=== PATIENT | female | born 1950 | race Caucasian/White ===

== ENCOUNTER → 2017-04-29 | Outpatient (CLI) | payer MEDICARE, OTHER ==
[~2017-04-29] MED LIST: ASPIRIN81 M1 PO; ATENOLOL50 MG PO; B121000 MCG/1 PO; BENAZEPRIL20 MG PO; CITALOPRAM20 MG PO; DULCOLAX5 MG PO; HYDROCHLOROTHIA25 MG PO; Lovenox40 MG/0.4 SC; MOM30 M1 PO; PERCOCET 325 MG1 TA2 PO; PRILOSEC20 MG; PRILOSEC20 MG PO; SYNTHROID,LEV100 MCG PO; SYNTHROID,LEVO25 MCG PO; TYLENOL325 M1 PO; ZOCOR20 MG PO
== END | disposition home or self-care (01) ==
LOC: RAD 09:25
DX: R09.89 Other specified symptoms and signs involving the circulatory and respiratory systems (principal); I10 Essential (primary) hypertension; M40.294 Other kyphosis, thoracic region; M47.894 Other spondylosis, thoracic region

== ENCOUNTER → 2017-05-30 | Outpatient (CLI) | payer MEDICARE, OTHER | END | disposition home or self-care (01) | LOC: CARD 13:00 | DX: I51.7 Cardiomegaly (principal); I10 Essential (primary) hypertension ==

== ENCOUNTER → 2017-09-30 | Outpatient (CLI) | payer MEDICARE, OTHER | END | disposition home or self-care (01) | LOC: RAD 10:09 | DX: R91.8 Other nonspecific abnormal finding of lung field (principal); I10 Essential (primary) hypertension ==

== ENCOUNTER → 2017-11-07 | Outpatient (CLI) | payer MEDICARE, OTHER ==
[2017-11-07 09:13] LABS: CREATININE 0.77 mg/dL (0.55-1.02)
== END | disposition home or self-care (01) ==
LOC: LAB 08:44 → CT 09:00
PROVIDERS: Radiology Diagnostic Radiology
DX: I25.10 Atherosclerotic heart disease of native coronary artery without angina pectoris (principal); R91.8 Other nonspecific abnormal finding of lung field

== ENCOUNTER → 2019-02-14 | Outpatient (CLI) | payer MEDICARE, OTHER | END | disposition home or self-care (01) | LOC: MAMMO 10:20 → RAD 12:52 | DX: Z12.31 Encounter for screening mammogram for malignant neoplasm of breast (principal); N95.9 Unspecified menopausal and perimenopausal disorder; R29.890 Loss of height ==

== ENCOUNTER → 2019-03-26 | Outpatient (CLI) | payer MEDICARE, OTHER | END | disposition home or self-care (01) | LOC: US 03-05 11:30 | DX: N63.14 Unspecified lump in the right breast, lower inner quadrant (principal); R92.8 Other abnormal and inconclusive findings on diagnostic imaging of breast ==

== ENCOUNTER 2020-04-29 03:26 | Emergency (ER) | payer MEDICARE, OTHER ==
[~2020-04-29] VITALS: Ht 170.1 cm; Wt 104.3 kg
[2020-04-29 03:36] VITALS: BP 144/64
[2020-04-29] MEDS ORDERED: MEDROL DOSEPAK4 MG PO (05:38)
== END 2020-04-29 06:13 | disposition home or self-care (01) ==
LOC: ED 03:26
DX: S00.561A Insect bite (nonvenomous) of lip, initial encounter (principal); S40.861A Insect bite (nonvenomous) of right upper arm, initial encounter; Z91.040 Latex allergy status; Z79.899 Other long term (current) drug therapy; Z79.82 Long term (current) use of aspirin; W57.XXXA Bitten or stung by nonvenomous insect and other nonvenomous arthropods, initial encounter; Y93.89 Activity, other specified; Y92.89 Other specified places as the place of occurrence of the external cause; Y99.8 Other external cause status

== ENCOUNTER 2020-09-20 14:45 | Inpatient (IN) | payer MEDICARE, OTHER ==
[~2020-09-20] VITALS: Ht 172.7 cm; Wt 105.7 kg
[~2020-09-20 14:45] MED LIST changes: +MEDROL DOSEPAK4 MG PO
[2020-09-20 14:48] VITALS: BP 156/84
[2020-09-20 15:35] LABS: BASO % 0.4 % (0.0-1.0); EOS # 0.4 10*3/uL (0.0-0.4); EOS % 4.4 % (1.0-4.0); HEMATOCRIT 42.3 % (37.0-47.0); LYMPH # 2.3 10*3/uL (1.3-4.4); LYMPH % 27.4 % (27.0-41.0); MEAN CELL VOLUME 86.3 fl (81.0-99.0); MEAN CORPUSCULAR HGB 26.3 pg (27.0-31.0); MEAN CORPUSCULAR HGB CONC 30.5 g/dl (33.0-37.0); MEAN PLATELET VOLUME 10.2 fl (9.6-12.3); MONO # 0.7 10*3/uL (0.1-1.0); MONO % 7.6 % (3.0-9.0); NEUT # 5.1 10*3/uL (2.3-7.9); NEUT % 59.7 % (47.0-73.0); PLATELET COUNT AUTOMATED 303 10*3/uL (130-400); RED CELL DISTRI WIDTH 14.7 % (0-14.5); WHITE BLOOD COUNT 8.5 10*3/uL (4.8-10.8)
[2020-09-20 16:29] LABS: ALBUMIN 3.1 gm/dl (3.1-4.5); ALKALINE PHOSPHATASE 165 U/L (45-117); BUN 13 mg/dl (7-24); CHLORIDE 108 mmol/L (98-107); CREATININE 0.64 mg/dL (0.55-1.02); SGOT/AST 36 IU/L (3-35); SGPT/ALT 36 U/L (12-78); SODIUM 140 mmol/L (136-145); TOTAL PROTEIN 8.2 gm/dL (6.4-8.2)
[2020-09-20 16:36] LABS: TROPONIN I < 0.015 ng/ml (<0.045)
[2020-09-20 16:44] LABS: BILIRUBIN Negative (Negative); BLOOD Trace-Intact (Negative); CLARITY Clear (Clear); COLOR Yellow (Yellow); GLUCOSE Negative (Negative); KETONE Negative (Negative); LEUKO ESTERASE 1+ (Negative); NITRITE Negative (Negative); PH 5.5 (4.5-8.0); SPECIFIC GRAVITY 1.025 (1.001-1.030)
[2020-09-20 16:49] LABS: RBC 0-2 rbc/hpf (0-2); WBC 16-20 wbc/hpf (0-5)
[2020-09-20 16:50] LABS: BACTERIA 1+
[2020-09-20] MEDS ORDERED: LEVOTHYROXINE88 MCG PO (19:22)
[2020-09-20] MEDS ORDERED: CARBIDOPA-LEVO1 EAC6 PO (19:24)
[2020-09-20] MEDS ORDERED: CITALOPRAM40 MG PO (19:26)
[2020-09-20] MEDS ORDERED: DONEPEZIL HCL10 MG PO (19:27)
[2020-09-20 19:37] VITALS: BP 142/82
[2020-09-21 04:47] VITALS: BP 143/59
[2020-09-21 06:10] LABS: BASO # 0.1 10*3/uL (0.0-0.1); BASO % 0.6 % (0.0-1.0); EOS # 0.4 10*3/uL (0.0-0.4); EOS % 4.4 % (1.0-4.0); LYMPH # 3.5 10*3/uL (1.3-4.4); MEAN CELL VOLUME 87.4 fl (81.0-99.0); MEAN CORPUSCULAR HGB 26.2 pg (27.0-31.0); MEAN PLATELET VOLUME 9.8 fl (9.6-12.3); MONO # 0.8 10*3/uL (0.1-1.0); MONO % 8.3 % (3.0-9.0); NEUT # 4.3 10*3/uL (2.3-7.9); NEUT % 47.4 % (47.0-73.0); PLATELET COUNT AUTOMATED 263 10*3/uL (130-400); RED BLOOD COUNT 4.69 10*6/uL (4.10-5.10); RED CELL DISTRI WIDTH 14.6 % (0-14.5); WHITE BLOOD COUNT 9.1 10*3/uL (4.8-10.8)
[2020-09-21 06:30] LABS: BUN 12 mg/dl (7-24); CHLORIDE 106 mmol/L (98-107); POTASSIUM 4.2 mmol/L (3.5-5.1); SODIUM 138 mmol/L (136-145)
[2020-09-21 06:34] LABS: CREATININE 0.74 mg/dL (0.55-1.02)
[2020-09-21 07:48] VITALS: BP 146/54
[2020-09-21 16:05] VITALS: BP 137/65
[2020-09-21 20:00] VITALS: BP 114/59
[2020-09-22] VITALS: BP 133/56
[2020-09-22 07:30] VITALS: BP 124/60
[2020-09-22 09:03] LABS: BASO % 0.4 % (0.0-1.0); EOS # 0.4 10*3/uL (0.0-0.4); EOS % 4.7 % (1.0-4.0); HEMATOCRIT 41.8 % (37.0-47.0); LYMPH # 2.4 10*3/uL (1.3-4.4); LYMPH % 32.2 % (27.0-41.0); MEAN CORPUSCULAR HGB 26.3 pg (27.0-31.0); MEAN CORPUSCULAR HGB CONC 30.6 g/dl (33.0-37.0); MEAN PLATELET VOLUME 9.4 fl (9.6-12.3); MONO # 0.6 10*3/uL (0.1-1.0); MONO % 7.7 % (3.0-9.0); NEUT # 4.1 10*3/uL (2.3-7.9); NEUT % 54.6 % (47.0-73.0); PLATELET COUNT AUTOMATED 265 10*3/uL (130-400); RED BLOOD COUNT 4.86 10*6/uL (4.10-5.10); RED CELL DISTRI WIDTH 14.6 % (0-14.5); WHITE BLOOD COUNT 7.4 10*3/uL (4.8-10.8)
[2020-09-22 09:39] LABS: ALBUMIN 3.2 gm/dl (3.1-4.5); ALKALINE PHOSPHATASE 140 U/L (45-117); BUN 10 mg/dl (7-24); CHLORIDE 106 mmol/L (98-107); CREATININE 0.73 mg/dL (0.55-1.02); POTASSIUM 4.7 mmol/L (3.5-5.1); SGOT/AST 41 IU/L (3-35); SGPT/ALT 36 U/L (12-78); SODIUM 139 mmol/L (136-145); TOTAL PROTEIN 8.2 gm/dL (6.4-8.2)
[2020-09-22 12:00] VITALS: BP 147/70
[2020-09-22 16:00] VITALS: BP 132/57
[2020-09-22 20:00] VITALS: BP 135/67
[2020-09-23] VITALS: BP 117/65
[2020-09-23 08:00] VITALS: BP 136/69
[2020-09-23] MEDS ORDERED: OXYBUTYNIN5 MG PO (10:53)
[2020-09-23 12:00] VITALS: BP 143/65
== END 2020-09-23 14:20 | DRG 57 ==
LOC: ED 14:45 → EDHOLD 17:17 → 4E 17:17
PROVIDERS: Internal Medicine; Nurse Practitioner Family; Student in an Organized Health Care Education/Training Program; ADMIT Internal Medicine; ATTEND Internal Medicine
DX: G20 Parkinson's disease (principal); N30.01 Acute cystitis with hematuria; E87.8 Other disorders of electrolyte and fluid balance, not elsewhere classified; B86 Scabies; R74.01 Elevation of levels of liver transaminase levels; I10 Essential (primary) hypertension; Z20.822 Contact with and (suspected) exposure to COVID-19; E03.9 Hypothyroidism, unspecified; N39.41 Urge incontinence; Z91.040 Latex allergy status; Z79.82 Long term (current) use of aspirin; Z79.899 Other long term (current) drug therapy; Z82.49 Family history of ischemic heart disease and other diseases of the circulatory system

== ENCOUNTER → 2021-03-30 | Outpatient (CLI) | payer MEDICARE, OTHER ==
[~2021-03-30] MED LIST changes: +CARBIDOPA-LEVO1 EAC6 PO; +CITALOPRAM40 MG PO; +DONEPEZIL HCL10 MG PO; +LEVOTHYROXINE88 MCG PO; +OXYBUTYNIN5 MG PO
[2021-03-30 11:04] LABS: BASO % 0.4 % (0.0-1.0); EOS # 0.4 10*3/uL (0.0-0.4); EOS % 5.9 % (1.0-4.0); HEMATOCRIT 42.6 % (37.0-47.0); LYMPH % 28.5 % (27.0-41.0); MEAN CELL VOLUME 85.9 fl (81.0-99.0); MEAN CORPUSCULAR HGB 26.2 pg (27.0-31.0); MEAN CORPUSCULAR HGB CONC 30.5 g/dl (33.0-37.0); MEAN PLATELET VOLUME 8.7 fl (9.6-12.3); MONO # 0.6 10*3/uL (0.1-1.0); MONO % 8.4 % (3.0-9.0); NEUT # 4.1 10*3/uL (2.3-7.9); NEUT % 56.4 % (47.0-73.0); PLATELET COUNT AUTOMATED 263 10*3/uL (130-400); RED BLOOD COUNT 4.96 10*6/uL (4.10-5.10); RED CELL DISTRI WIDTH 15.2 % (0-14.5); WHITE BLOOD COUNT 7.2 10*3/uL (4.8-10.8)
[2021-03-30 11:35] LABS: ALBUMIN 3.3 gm/dl (3.1-4.5); ALKALINE PHOSPHATASE 127 U/L (45-117); BUN 11 mg/dl (7-24); CHLORIDE 105 mmol/L (98-107); CHOLESTEROL 152 mg/dL (<200); CREATININE 0.69 mg/dL (0.55-1.02); LDL CHOLESTEROL 86 mg/dL (9-159); POTASSIUM 4.4 mmol/L (3.5-5.1); SGOT/AST 26 IU/L (3-35); SGPT/ALT 11 U/L (12-78); SODIUM 137 mmol/L (136-145); TOTAL PROTEIN 8.8 gm/dL (6.4-8.2); TRIGLYCERIDES 140 mg/dl (<150)
== END | disposition home or self-care (01) ==
LOC: LAB 10:43
PROVIDERS: ATTEND Nurse Practitioner Family
DX: E03.9 Hypothyroidism, unspecified (principal); E53.8 Deficiency of other specified B group vitamins; I10 Essential (primary) hypertension

== ENCOUNTER → 2022-03-18 | Outpatient (CLI) | payer MEDICARE, OTHER | END | disposition home or self-care (01) | LOC: RAD 15:38 | PROVIDERS: ATTEND Nurse Practitioner Family | DX: U07.1 COVID-19 (principal); J98.11 Atelectasis ==

== ENCOUNTER → 2022-10-08 | Outpatient (CLI) | payer MEDICARE, OTHER ==
[2022-10-08 11:24] LABS: ALKALINE PHOSPHATASE 122 U/L (46-116); TOTAL PROTEIN 8.6 gm/dL (6.0-8.0)
[2022-10-08 11:29] LABS: SGPT/ALT < 7 U/L (10-49)
== END | disposition home or self-care (01) ==
LOC: US 09-30 07:30 → LAB 10:08
PROVIDERS: ATTEND Nurse Practitioner Family
DX: K76.0 Fatty (change of) liver, not elsewhere classified (principal); K80.20 Calculus of gallbladder without cholecystitis without obstruction

== ENCOUNTER → 2023-04-15 | Outpatient (CLI) | payer MEDICARE, OTHER ==
[2023-04-15 10:57] LABS: BASO % 0.5 % (0.0-1.0); EOS # 0.3 10*3/uL (0.0-0.4); HEMATOCRIT 43.2 % (37.0-47.0); LYMPH # 1.7 10*3/uL (1.3-4.4); LYMPH % 27.3 % (27.0-41.0); MEAN CELL VOLUME 85.5 fl (81.0-99.0); MEAN CORPUSCULAR HGB 26.3 pg (27.0-31.0); MEAN CORPUSCULAR HGB CONC 30.8 g/dl (33.0-37.0); MEAN PLATELET VOLUME 8.8 fl (9.6-12.3); MONO # 0.5 10*3/uL (0.1-1.0); MONO % 7.6 % (3.0-9.0); NEUT # 3.7 10*3/uL (2.3-7.9); NEUT % 59.3 % (47.0-73.0); PLATELET COUNT AUTOMATED 222 10*3/uL (130-400); RED BLOOD COUNT 5.05 10*6/uL (4.10-5.10); RED CELL DISTRI WIDTH 14.6 % (0-14.5); WHITE BLOOD COUNT 6.2 10*3/uL (4.8-10.8)
[2023-04-15 11:48] LABS: ALKALINE PHOSPHATASE 154 U/L (46-116); BUN 11 mg/dl (9-23); CHLORIDE 106 mmol/L (98-107); CHOLESTEROL 153 mg/dL (<200); LDL CHOLESTEROL 89 mg/dL (9-159); TOTAL PROTEIN 8.9 gm/dL (6.0-8.0); TRIGLYCERIDES 108 mg/dl (<150); VITAMIN D, 25-HYDROXY 39.4 ng/mL (30-100)
[2023-04-15 11:49] LABS: SGPT/ALT < 7 U/L (10-49)
== END | disposition home or self-care (01) ==
LOC: LAB 10:38
PROVIDERS: ATTEND Nurse Practitioner Family
DX: I10 Essential (primary) hypertension (principal); E55.9 Vitamin D deficiency, unspecified; E03.9 Hypothyroidism, unspecified; F32.9 Major depressive disorder, single episode, unspecified

== ENCOUNTER 2023-11-04 12:20 | Emergency (ER) | payer OTHER ==
[~2023-11-04] VITALS: Wt 104.3 kg
[2023-11-04 12:33] VITALS: BP 153/67
[2023-11-04] MEDS ORDERED: AMOX-CLAV 875-1 EACH PO (12:54)
[2023-11-04] MEDS ORDERED: Amoxicillin/Clavulanate Pota 875 MG TAB PO ONE (12:55)
== END 2023-11-04 13:04 | disposition home or self-care (01) ==
LOC: ED 12:20
DX: K04.7 Periapical abscess without sinus (principal); Z91.040 Latex allergy status; Z79.899 Other long term (current) drug therapy; Z79.82 Long term (current) use of aspirin

== ENCOUNTER → 2024-06-10 | Outpatient (CLI) | payer OTHER ==
[~2024-06-10] MED LIST changes: +AMOX-CLAV 875-1 EACH PO
== END | disposition home or self-care (01) ==
LOC: WOUNDCARE 01:11
PROVIDERS: ATTEND Nurse Practitioner Family
DX: R21 Rash and other nonspecific skin eruption (principal); N90.89 Other specified noninflammatory disorders of vulva and perineum; I10 Essential (primary) hypertension; E03.9 Hypothyroidism, unspecified; J44.9 Chronic obstructive pulmonary disease, unspecified; F32.A Depression, unspecified

== ENCOUNTER 2025-02-17 14:35 | Observation (INO) | payer OTHER ==
[~2025-02-17] VITALS: Ht 167.6 cm; Wt 81.2 kg
[2025-02-17 14:41] VITALS: BP 105/55
[2025-02-17 16:10] LABS: BASO # 0.0 10*3/uL (0.0-0.1); BASO % 0.2 % (0.0-1.0); EOS # 0.2 10*3/uL (0.0-0.4); EOS % 1.3 % (1.0-4.0); MEAN CELL VOLUME 86.8 fl (81.0-99.0); MEAN CORPUSCULAR HGB 26.1 pg (27.0-31.0); MEAN PLATELET VOLUME 9.8 fl (9.6-12.3); MONO # 0.9 10*3/uL (0.1-1.0); MONO % 7.1 % (3.0-9.0); NEUT # 11.0 10*3/uL (2.3-7.9); NEUT % 84.4 % (47.0-73.0); NUCLEATED RED BLOOD CELL 0.0 % (0.0-0.0); NUCLEATED RED BLOOD CELL 0.0 10*3/uL (0.0-0.0); PLATELET COUNT AUTOMATED 253 10*3/uL (130-400); RED CELL DISTRI WIDTH 14.0 % (0-14.5)
[2025-02-17] MEDS ORDERED: SODIUM CHLORIDE 0.9% 1,000 ML IV ONE ×3 (16:25→18:45)
[2025-02-17 16:39] LABS: BUN 20 mg/dl (9-23)
[2025-02-17] MEDS ORDERED: MAGNESIUM SULFATE 50 ML IV ONE (17:00)
[2025-02-17] MEDS ORDERED: Piperacillin Sodium/Tazobact 2.25 GM in SODIUM CHLORIDE 0.9% 50 ML IV ONE ×2 (17:30→19:45)
[2025-02-17] MEDS ORDERED: IOHEXOL 300 MG/ML 100 ML VIAL IV ONE (18:35)
[2025-02-17 19:23] VITALS: BP 117/51
[2025-02-18 05:55] VITALS: BP 107/65
[2025-02-18] MEDS ORDERED: Carbidopa/Levodopa 25/100MG 1 TAB TAB PO SCH (09:05)
[2025-02-18 09:42] VITALS: BP 195/75
[2025-02-18] MEDS ORDERED: BISACODYL 10 MG SUPP R PRN (11:10)
[2025-02-18] MEDS ORDERED: BISACODYL 5 MG TAB PO PRN (11:10)
[2025-02-18] MEDS ORDERED: ACETAMINOPHEN 325 MG TAB PO PRN (11:10)
[2025-02-18 11:42] VITALS: BP 110/68
[2025-02-18 12:53] LABS: BASO # 0.0 10*3/uL (0.0-0.1); BASO % 0.1 % (0.0-1.0); EOS # 0.2 10*3/uL (0.0-0.4); EOS % 2.0 % (1.0-4.0); MEAN CELL VOLUME 85.1 fl (81.0-99.0); MEAN CORPUSCULAR HGB 26.3 pg (27.0-31.0); MEAN PLATELET VOLUME 10.1 fl (9.6-12.3); MONO # 0.9 10*3/uL (0.1-1.0); MONO % 7.8 % (3.0-9.0); NEUT # 9.6 10*3/uL (2.3-7.9); NEUT % 84.3 % (47.0-73.0); NUCLEATED RED BLOOD CELL 0.0 % (0.0-0.0); NUCLEATED RED BLOOD CELL 0.0 10*3/uL (0.0-0.0); RED CELL DISTRI WIDTH 14.0 % (0-14.5)
[2025-02-18 12:55] LABS: PLATELET COUNT AUTOMATED 183 10*3/uL (130-400)
[2025-02-18 12:59] LABS: BUN 15 mg/dl (9-23); FREE T4 1.31 ng/dl (0.89-1.76)
[2025-02-18 13:23] LABS: SGPT/ALT < 7 U/L (5-49)
[2025-02-18] MEDS ORDERED: MAGNESIUM SULFATE 50 ML IV ONE (15:05)
[2025-02-18] MEDS ORDERED: LOSARTAN POTASS25 M1 PO (15:36)
[2025-02-18] MEDS ORDERED: SINEMET 25-1001 EACH PO (15:36)
[2025-02-18] MEDS ORDERED: Phosphorus/Potassium 1.45 GM PACKET PO SCH (17:00)
[2025-02-18] MEDS ORDERED: Vancomycin Hydrochloride 1,000 MG in SODIUM CHLORIDE 0.9% 250 ML IV SCH (18:00)
[2025-02-18 19:06] VITALS: BP 117/58
[2025-02-18 19:47] VITALS: BP 141/61
[2025-02-18 22:23] VITALS: BP 122/54
[2025-02-19 08:07] LABS: APTT 25.9 sec (22.9-30.2)
[2025-02-19] MEDS ORDERED: DONEPEZIL 10 MG TAB PO SCH (10:00)
[2025-02-19] MEDS ORDERED: CITALOPRAM 20 MG TAB PO SCH (10:00)
== END 2025-02-19 02:56 | disposition short-term general hospital (02) ==
LOC: ED 14:35 → EDHOLD 02-18 08:14
PROVIDERS: Nurse Practitioner; ADMIT Internal Medicine; ATTEND Internal Medicine
DX: A41.9 Sepsis, unspecified organism (principal); R65.20 Severe sepsis without septic shock; E03.9 Hypothyroidism, unspecified; F03.90 Unspecified dementia, unspecified severity, without behavioral disturbance, psychotic disturbance, mood disturbance, and anxiety; N76.0 Acute vaginitis; N39.0 Urinary tract infection, site not specified; D72.829 Elevated white blood cell count, unspecified; D64.9 Anemia, unspecified; E83.42 Hypomagnesemia; G20.A1 Parkinson's disease without dyskinesia, without mention of fluctuations; C52 Malignant neoplasm of vagina; Z79.899 Other long term (current) drug therapy